=== PATIENT | female | born 1965 | race Two or more races ===

== ENCOUNTER 2023-03-12 07:44 | Outpatient (CLI) | payer OTHER ==
[~2023-03-12 07:44] MED LIST: ALLEGRA ALLERG180 MG PO; FLONASE16 GM NASAL; GILTUSS TR TAB1 EACH PO
== END 2023-03-12 07:50 | disposition home or self-care (01) ==
LOC: NUCLEAR 07:44
PROVIDERS: ATTEND Internal Medicine
DX: I11.9 Hypertensive heart disease without heart failure (principal); I25.118 Atherosclerotic heart disease of native coronary artery with other forms of angina pectoris; E78.2 Mixed hyperlipidemia; R07.1 Chest pain on breathing